=== PATIENT | male | born 2000 | race Two or more races ===

== ENCOUNTER → 2025-04-09 | Emergency (ER) | payer OTHER ==
[~2025-04-09] VITALS: Ht 162.6 cm; Wt 68.0 kg
[~2025-04-09] MED LIST: 0.9 % SODIUM CHLORIDE 1,000 ML IV STA; LORazepam 2 MG/ML VIAL IM ONE
[2025-04-09 19:53] LABS: HEMATOCRIT 40.8 % (40.1-51.0); HEMOGLOBIN 14.7 g/dL (13.7-17.5); MEAN CORPUSCULAR HEMOGLOBIN 30.1 pg (25.6-32.2); PLATELET COUNT 290 K/uL (163-369); RED BLOOD COUNT 4.89 M/uL (4.63-6.08); RED CELL DISTRIBUTION WIDTH 13.3 % (11.6-14.4)
[2025-04-09 19:54] LABS: BASO % 0.3 % (0.1-1.2); EOS # 0.01 (0.04-0.54); EOS % 0.1 % (0.7-7.0); LYMPH # 1.92 (1.18-3.74); LYMPH % 10.7 % (19.3-53.1); MONO # 1.35 (0.24-0.82); MONO % 7.5 % (4.7-12.5); NEUT # 14.47 (1.56-6.13); NEUT % 80.5 % (34.0-71.1)
[2025-04-09 20:04] LABS: PH,URINE 5.5 (5.0-8.0); URINE APPEARANCE Cloudy; URINE BILIRRUBIN Negative (NEGATIVE); URINE BLOOD Moderate; URINE COLOR Yellow; URINE GLUCOSE Negative (NEGATIVE); URINE KETONE 15 (NEGATIVE); URINE LEUKOCYTE Negative; URINE NITRATE Negative; URINE UROBILINOGEN 0.2 E.U./dl
[2025-04-09 20:07] LABS: ALBUMIN 4.8 gm/dL (3.4-5.0); BILIRUBIN TOTAL 1.2 mg/dL (0.3-1.2); CALCIUM 9.3 mg/dL (8.5-10.1); CREATININE SERUM 1.16 mg/dL (0.70-1.30); GFR 78.02; GLOBULINA 3.3 G/DL (2.4-3.5); POTASSIUM 3.52 mEq/L (3.5-5.1); TOTAL PROTEIN 8.1 gm/dL (6.4-8.2)
[2025-04-09 20:09] LABS: URINE BACTERIA 50.1 uL (0.0-1933); URINE CAST 4.56 uL (0.0-1.40); URINE EPITHELIAL CELLS 8.2 uL (0.0-38.8); URINE RBC 5.8 uL (0.0-20.8); URINE WBC 13.7 uL (0.0-23.2)
[2025-04-09 20:52] LABS: URINE PROTEIN 100 (NEGATIVE)
== END | disposition left against medical advice (07) ==
LOC: ER 17:57
PROVIDERS: Emergency Medicine
DX: F11.23 Opioid dependence with withdrawal (principal)
CPT/HCPCS: 36415; 96365; 96366; 99282; J7030